=== PATIENT | female | born 1990 | race Caucasian/White ===

== ENCOUNTER → 2017-01-13 | Outpatient (REF) | payer OTHER ==
[2017-01-13 13:24] LABS: FREE T4 1.46 NG/DL (0.76-1.46)
== END ==
LOC: M LABDRAW1 12:45
PROVIDERS: ATTEND Physician Assistant Medical
DX: E89.0 Postprocedural hypothyroidism (principal)

== ENCOUNTER → 2017-05-30 | Outpatient (REF) | payer OTHER ==
[2017-05-30 16:21] LABS: MEAN CORPUSCULAR HGB CONC 33.8 g/dl (32.0-36.5); MEAN CORPUSCULAR VOLUME 88.8 fl (80.0-96.0); RED CELL DISTRIBUTION WIDTH 12.6 % (11.5-14.5); WHITE BLOOD COUNT 5.6 K/mm3 (4.0-10.0)
[2017-05-30 17:23] LABS: URIC ACID 4.2 MG/DL (2.6-6.0)
[2017-05-30 18:12] LABS: ERYTHROCYTE SEDIMENTATION RATE 8 mm/hr (0-20)
[2017-05-30 19:32] LABS: BASOPHILS 2 % (0-4); EOSINOPHILS 4 % (0-5)
[2017-06-04 00:06] LABS: Lyme Disease IgG/IgM Antibodie <0.91 ISR (0.00-0.90); Lyme Disease IgM Ab Quantitati <0.80 index (0.00-0.79)
== END ==
LOC: M LABDRAW1 13:32
PROVIDERS: ATTEND Physician Assistant Surgical
DX: S62.366D Nondisplaced fracture of neck of fifth metacarpal bone, right hand, subsequent encounter for fracture with routine healing (principal)

== ENCOUNTER → 2018-01-16 | Outpatient (REF) | payer OTHER ==
[2018-01-16 12:54] LABS: THYROID STIMULATING HORMONE 0.063 uIU/ML (0.358-3.740)
[2018-01-16 13:35] LABS: FREE T4 1.69 NG/DL (0.76-1.46)
== END ==
LOC: M LABDRAW1 09:40
DX: E89.0 Postprocedural hypothyroidism (principal)

== ENCOUNTER → 2018-03-26 | Outpatient (REF) | payer OTHER ==
[2018-03-26 16:26] LABS: FREE T4 1.34 NG/DL (0.76-1.46); THYROID STIMULATING HORMONE 0.392 uIU/ML (0.358-3.740)
== END ==
LOC: M LABDRAW1 15:51
DX: E89.0 Postprocedural hypothyroidism (principal)

== ENCOUNTER → 2018-07-28 | Outpatient (REF) | payer OTHER ==
[2018-07-28 12:48] LABS: FREE T4 1.16 NG/DL (0.76-1.46); THYROID STIMULATING HORMONE 0.683 uIU/ML (0.358-3.740)
== END ==
LOC: M LABDRAW1 11:33
DX: E89.0 Postprocedural hypothyroidism (principal)

== ENCOUNTER → 2018-08-07 | Outpatient (CLI) | payer OTHER | LOC: M RAD 11:47 | DX: Z30.431 Encounter for routine checking of intrauterine contraceptive device (principal) | CPT/HCPCS: 76856 ==

== ENCOUNTER → 2019-04-30 | Outpatient (REF) | payer OTHER ==
[2019-04-30 16:44] LABS: FREE T4 1.15 NG/DL (0.76-1.46); THYROID STIMULATING HORMONE 1.7 uIU/ML (0.358-3.740)
== END ==
LOC: M LABDRAW1 15:34
PROVIDERS: ATTEND Nurse Practitioner Family
DX: E89.0 Postprocedural hypothyroidism (principal)

== ENCOUNTER 2019-06-22 10:29 | Day surgery (SDC) | payer OTHER ==
[~2019-06-22] VITALS: Ht 154.9 cm; Wt 53.1 kg
[~2019-06-22 10:29] MED LIST: LEVO88TA3 PO; LIDOCAINE 1% MDV 20ML VIAL SQ PRN; LR 1,000 ML IV ONE; MIRE1IUD IU; ceFAZolin SOD 2 GM in IV 1 EA IV ONE; fentaNYL 100 MCG/2 ML INJECTION (J3010) IV SCH
[2019-06-22] MEDS ORDERED: ROPIvacaine 0.5% 30 ML INJECTION (J2795 PER 1MG) ONE (10:30)
[2019-06-22] MEDS ORDERED: EPINEPHrine INJ 1 MG/ML 1ML AMP ONE (10:30)
[2019-06-22] MEDS ORDERED: dexameTHASONE 10 MG/1 ML VIAL PRES.FREE (J1100) ONE (10:30)
[2019-06-22 11:15] LABS: URINE PREG TEST NEGATIVE (NEGATIVE)
[2019-06-22] MEDS ORDERED: fentaNYL 100 MCG/2 ML INJECTION (J3010) As Ordered ONE ×2 (13:12→14:32)
[2019-06-22] MEDS ORDERED: MIDAZOLAM INJ 2 MG/2 ML VIAL (J2250) As Ordered ONE ×2 (13:12→14:32)
[2019-06-22] MEDS: MIDAZOLAM INJ 2 MG/2 ML VIAL (J2250) IV SCH ×2 (13:24→13:27)
[2019-06-22] MEDS ORDERED: EPINEPHrine INJ 1 MG/ML 1ML AMP As Ordered ONE (13:25)
[2019-06-22] MEDS ORDERED: ROCURONIUM BROMIDE 50 MG/5 ML VIAL As Ordered ONE (14:32)
[2019-06-22] MEDS ORDERED: PROPOFOL 200 MG/20 ML VIAL As Ordered ONE (14:32)
[2019-06-22] MEDS ORDERED: dexameTHASONE 4 MG/ML 1ML VIAL (J1100) As Ordered ONE (14:32)
[2019-06-22] MEDS ORDERED: LIDOCAINE 2% INJ 100 MG/5 ML SDV (FOR ANES.) As Ordered ONE (14:32)
[2019-06-22] MEDS ORDERED: ONDANSETRON 4MG/2ML VIAL (J2405) As Ordered ONE ×2 (15:29→16:26)
[2019-06-22] MEDS ORDERED: NEOSTIGMINE 10 MG/10 ML VIAL (J2710) As Ordered ONE (15:35)
[2019-06-22] MEDS ORDERED: GLYCOPYRROLATE INJ 0.2 MG/ML 2 ML VIAL As Ordered ONE (15:36)
[2019-06-22] MEDS ORDERED: ACETAMINOPHEN 1000MG 100ML IV BTL (OFIRMEV) (J0131 PER 10MG) As Ordered ONE (15:46)
[2019-06-22] MEDS ORDERED: METOCLOPRAMIDE INJ 10MG/2ML VIAL (J2765) As Ordered ONE ×2 (16:26→16:27)
[2019-06-22] MEDS ORDERED: ONDANSETRON 4MG/2ML VIAL (J2405) IV PRN (17:00)
[2019-06-22] MEDS ORDERED: LR 1,000 ML IV SCH ×2 (17:00)
[2019-06-22] MEDS ORDERED: fentaNYL 100 MCG/2 ML INJECTION (J3010) IV PRN (17:00)
[2019-06-22] MEDS ORDERED: PERCOCET 5MG/325MG TAB PO PRN (17:00)
[2019-06-22] MEDS ORDERED: METOCLOPRAMIDE INJ 10MG/2ML VIAL (J2765) IV PRN (17:00)
[2019-06-22] MEDS ORDERED: HALOPERIDOL 5 MG/ML VIAL (J1630) IV SCH (17:45)
[2019-06-22 18:57] VITALS: BP 103/60
--- NOTE | 2019-06-23 11:28 | RO ---
DATE OF PROCEDURE: 06/22/2019 PREOPERATIVE DIAGNOSIS: 1. Left shoulder labral tear with instability. POSTOPERATIVE DIAGNOSES: 1. Left shoulder anterior posterior labral tear with instability. 2. Left shoulder Hill-Sachs lesion. PROCEDURE: 1. Left shoulder arthroscopic anterior and posterior labral repair. 2. Left shoulder chondroplasty. SURGEON: Dr. Erasto Kaplan LINE UP MACHINE OPERATOR: BRETT Patiño ANESTHESIA: General with preoperative nerve block. IV FLUIDS: Lactated Ringer's. ESTIMATE BLOOD LOSS: 5 mL. IMPLANTS: Arthrex 3 mm SutureTak times one and Arthrex 2.9 mm PushLock with labral tape times three. CLOSURE: Nylon. PROCEDURE: The patient was identified in the preoperative holding area. The left shoulder was marked by myself. She had a preoperative nerve block. She was brought the operating room, placed supine on a well-padded OR table. General anesthesia was induced. She received appropriate IV antibiotics within 1 hour of incision. Bilateral Venodyne boots for deep vein thrombosis (DVT) prophylaxis. Examination under anesthesia revealed 180 degrees of forward flexion, 90 of external rotation. She had a grade 3 anterior load and shift, grade 1+ posterior load and shift. She was then placed into the right side down lateral decubitus position with an axillary roll and all bony prominences well padded. She was secured to the OR table and the left arm was placed into the Arthrex STaR Sleeve lateral decubitus traction santoyo with 10 pounds of traction. The left shoulder was then prepped and draped in a normal sterile fashion with Chloraprep. Prior to incision, a time out performed per hospital protocol. Kash Ortiz was present for the entire procedure and participated all essential portions of the procedure. This included patient positioning and draping, holding arthroscope, providing axial traction to assist with suture passage and with retrieving sutures and wound closure and applying the sling. The left shoulder was insufflated with Lactated Ringer's. Standard posterior viewing portal made with an 11 blade. 30 degree arthroscope introduced into the joint and diagnostic arthroscopy revealed there was no tearing of the rotator cuff. There was some anterior inferior glenoid bone loss, but this was mild. There was a Hill-Sachs which did not appear to engage with rotation and abduction. There was tearing of the anterior inferior labrum, which had scarred along to the medial aspect of the glenoid neck. The tearing extended around the 6 o'clock position then posteriorly where there was some macerated posterior labral tear. There was a positive drive-through sign. The shoulder was sitting subluxated inferiorly. The long head of biceps appeared pristine. There was no tearing of the superior labrum. A low anterior working portal was localized just above the subscap to give the appropriate angle for drilling. Purple Arthrex cannula placed. A second cannula was placed just in front of the long head of biceps tendon also through the rotator interval. The hooked radiofrequency cautery was used to develop the plane between anterior labrum and the glenoid. Labral elevator was then used to subperiosteally elevate the capsule and labrum off the anterior glenoid neck. Ring curette was then used to clear soft tissue off the glenoid neck and create a bleeding surface. Prior to placing anchors, I felt that three anchor at [employer] repair was necessary anteriorly and likely one to two anchors posteriorly. I then placed an Arthrex 3 mm SutureTak in the low anterior glenoid. FiberWire sutures were passed with the SutureLasso in a horizontal mattress fashion taking care to grab the anterior band of the inferior glenohumeral ligaments as well as capsule. Arthroscopic knot pusher was then used to tie arthroscopic knots using alternating half hitches as my it administrative assistant applied a posterior vector the proximal humerus. This nicely restored the anterior inferior bumper. Suture was cut with a second cutter. Next, the Lasso was used to shuttle labral tape through the anterior capsule and labrum just above the prior sutures and then they were loaded through a PushLock anchor, the appropriate drill used to create a socket in the glenoid, and the sutures were tensioned, anchor inserted and then malleted per routine with excellent fixation and again excellent advancement of the labrum and capsule. Sutures were cut with a second cutter per routine. Those same steps were repeated for a second PushLock anchor round the equator so a total of three anchors anteriorly. This eliminated the drive-through. Humeral head was now centrally located on the glenoid. Given that the patient felt that she was having inferior sagging and instability, she was noted to be subluxated inferiorly prior to labral repair and there was extensive tearing extending around the 6 o'clock position into the posterior labrum. I did feel that this required posterior labral repair. A shaver was used to debride the free edge labral tearing and then a labral elevator was passed from the anterior portal into the posterior inferior glenoid neck to subperiosteally elevate. The percutaneous labral repair kit was then used to place an accessory posterolateral cannula to give a better angle for drilling. SutureLasso was then used to shuttle nitinol wire through posterior inferior capsule and labrum and labral tape was passed and then loaded through a 2.9 PushLock anchor. Appropriate drill used to create a socket in the posterior inferior glenoid. Sutures tensioned, anchor inserted by hand and then malleted per routine with excellent fixation. Probing of the posterior labrum revealed a tight repair posteriorly. I did not feel that any additional anchors were necessary. Shoulder was irrigated. Chondroplasty to the humeral head adjacent to this Hill-Sachs. No indication for remplissage. No indication for biceps tenodesis or tenotomy. The long head of biceps had previously been pulled into the joint and there was no tearing. The shoulder was irrigated and drained. Portals closed with nylon suture. Bulky sterile dressing applied. She was then carefully placed into her ARC 2 sling. At the time of this dictation the patient was about to be extubated and transferred to the postanesthesia care unit (PACU). COMPLICATIONS: None.
== END 2019-06-22 19:05 | disposition home or self-care (01) ==
LOC: M SDC 10:29
PROVIDERS: ATTEND Orthopaedic Surgery
DX: M25.312 Other instability, left shoulder (principal); M75.92 Shoulder lesion, unspecified, left shoulder; E05.90 Thyrotoxicosis, unspecified without thyrotoxic crisis or storm; Z87.891 Personal history of nicotine dependence; Z92.3 Personal history of irradiation; Z79.899 Other long term (current) drug therapy
CPT/HCPCS: 29807; 29823; 64415; 84703; C1713; J0131; J0690; J1100; J1630; J2250; J2405; J2710; J2765; J2795; J3010

== ENCOUNTER → 2019-08-31 | Outpatient (REF) | payer OTHER ==
[~2019-08-31] MED LIST changes: -LIDOCAINE 1% MDV 20ML VIAL SQ PRN; -LR 1,000 ML IV ONE; -ceFAZolin SOD 2 GM in IV 1 EA IV ONE; -fentaNYL 100 MCG/2 ML INJECTION (J3010) IV SCH
[2019-08-31 18:37] LABS: FREE T4 1.11 NG/DL (0.76-1.46); THYROID STIMULATING HORMONE 5.24 uIU/ML (0.358-3.740)
== END ==
LOC: M LABDRAW1 17:05
PROVIDERS: ATTEND Nurse Practitioner Family
DX: E89.0 Postprocedural hypothyroidism (principal)